=== PATIENT | male | born 1945 | race Caucasian/White ===

== ENCOUNTER → 2025-06-21 11:48 | Outpatient (BNVA) | payer MEDICARE, SELFPAY | PROVIDERS: PCP Family Medicine; Visit Provider Family Medicine | DX: I10 Essential (primary) hypertension (principal); I25.10 Atherosclerotic heart disease of native coronary artery without angina pectoris; E78.00 Pure hypercholesterolemia, unspecified; E11.65 Type 2 diabetes mellitus with hyperglycemia; E03.9 Hypothyroidism, unspecified; D64.9 Anemia, unspecified | CPT/HCPCS: 80053; 80061; 82043; 82607; 83036; 83540; 83550; 84439; 84443; 85025 ==

== ENCOUNTER 2025-11-12 08:35 | Outpatient (CLI) | payer BC, MEDICARE, SELFPAY ==
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
--- NOTE | 2025-11-12 08:41 | XR_ITS ---
WS: [id number] XR hip RT 2-3V wo/w pel* [id number] REASON FOR EXAM: R hip pain FINDINGS: No fracture or focal bone lesion. Minimal narrowing of the posterior inferior joint space with moderate subchondral sclerosis and osteophytosis of the acetabulum. The anterior superior joint space is intact and well preserved. Minimal osteophytosis of the femoral head. 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
== END 2025-11-12 08:36 | disposition home or self-care (01) ==
LOC: RAD 08:38
PROVIDERS: PCP Family Medicine; Visit Provider Family Medicine
DX: M16.11 Unilateral primary osteoarthritis, right hip (principal); M25.78 Osteophyte, vertebrae; M41.9 Scoliosis, unspecified; M48.061 Spinal stenosis, lumbar region without neurogenic claudication; M47.817 Spondylosis without myelopathy or radiculopathy, lumbosacral region
CPT/HCPCS: 72100; 73502

== ENCOUNTER 2025-11-22 12:07 | Outpatient (CLI) | payer BC, MEDICARE, SELFPAY ==
--- NOTE | 2025-11-22 13:45 | MR_ITS ---
WS: [id number] MRI LUMBAR SPINE NONCONTRAST TECHNIQUE: Sagittal T1, T2 and STIR imaging. Axial T1 and T2 imaging. 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 FINDINGS: Moderate thoracic kyphosis with ankylosis. Ankylosis thoracic spine extending to L1. No acute lumbar spine compression fractures. Prior postoperative changes laminectomy defects L3-L4 and L4-5. L1-L2: Mild annular bulging. Tiny annular fissure. Mild facet arthropathy. Spinal canal and foramen are patent. L2-L3: Mild annular bulging. Narrowing of the LEFT subarticular recess. Moderate central canal stenosis. Moderate facet arthropathy. Mild LEFT foraminal narrowing. L3-L4: Shallow central protrusion. Impingement of the LEFT greater than RIGHT subarticular recess. Mild narrowing of the thecal sac. Laminectomy defects. Moderate facet arthropathy. Mild LEFT greater than RIGHT foraminal narrowing. L4-L5: Laminectomy defects. Central disc bulging with shallow protrusion impinges the traversing L5 nerve roots bilaterally. Moderate LEFT RIGHT narrowing of the thecal sac. Moderate bilateral foraminal narrowing. Moderate facet arthropathy. RIGHT synovial cyst just below the L4-5 interspace contributes to impingement on the RIGHT subarticular recess. Synovial cyst measures 9 mm. L5-S1: Mild annular bulging. Slight impingement of traversing LEFT greater than RIGHT S1 nerve roots. Moderate facet arthropathy with ligamentum flavum hypertrophy. Foramen are patent. Visualized pelvic bony structures: Normal. Paravertebral soft tissues: Normal. Small LEFT renal cyst. MR/MR lumbar spine wo con* [id number] IMPRESSION: 1. Thoracic kyphosis with diffuse ankylosis seen on the [facility] imaging 2. Moderate narrowing of the thecal sac L4-5 with RIGHT to LEFT impingement. I mpingement of the subarticular recess. 9 mm RIGHT synovial cyst contributes to impingement. 3. Prior laminectomy defects L3-L4 and L4-L5. 4. Moderate central canal stenosis L2-3 with narrowing of the LEFT subarticula r recess. 5. Shallow central protrusion L3-4 impinges the traversing LEFT greater than R IGHT L4 nerve roots. 6. Moderate to advanced facet arthropathy L3-L5.
== END 2025-11-22 12:08 | disposition home or self-care (01) ==
PROVIDERS: PCP Family Medicine; Visit Provider Family Medicine
DX: M51.16 Intervertebral disc disorders with radiculopathy, lumbar region (principal); M48.061 Spinal stenosis, lumbar region without neurogenic claudication; M40.294 Other kyphosis, thoracic region; M47.816 Spondylosis without myelopathy or radiculopathy, lumbar region; Z98.890 Other specified postprocedural states
CPT/HCPCS: 72148